=== PATIENT | female | born 1960 | race Caucasian/White ===

== ENCOUNTER → 2021-06-22 | Outpatient (CLI) | payer BC ==
[2021-06-27 14:09] LABS: HPV 16 Negative (Negative); HPV 18 Negative (Negative); HPV OTHER HR TYPES Negative (Negative)
== END | disposition home or self-care (01) ==
LOC: LAB 12:59 → LAB SHORT 12:59
PROVIDERS: Family Medicine
DX: Z01.419 Encounter for gynecological examination (general) (routine) without abnormal findings (principal)
CPT/HCPCS: 87624; G0145

== ENCOUNTER 2021-10-10 12:42 | Day surgery (SDC) | payer BC ==
[~2021-10-10 12:42] MED LIST: IBUP200 PO
--- NOTE | 2021-10-10 14:09 | NUR ---
Ambulatory in Day SurgeryPatient states colon prep results clear. History, Chart, Medications and Allergies reviewed before start of procedure.Lungs clear T/O to Auscultation. Patient confirms NPO status and agrees with scheduled surgery.
--- NOTE | 2021-10-10 14:41 | NUR ---
10/10/21 1441 Jackelin Perkins History, Chart, Medications and Allergies reviewed before start of procedure. Patient confirms NPO status and agrees with scheduled surgery. 3-LEAD EKG REVIEWED WITH PHYSICIAN PRIOR TO START OF PROCEDURE. MONITOR INTACT WITH CONTINUOUS PULSE OXIMETRY AND INTERMITTENT BP. PATIENT DETERMINED TO BE ASA APPROPRIATE FOR PROPOFOL SEDATION PRIOR TO START OF PROCEDURE BY .
--- NOTE | 2021-10-10 15:50 | NUR ---
Ambulatory in Day Surgery. Discharge instructions reviewed with patient. Patient verbalizes understanding. Copy given to patient to take home. History, Chart, Medications and Allergies reviewed before start of procedure. Lungs clear T/O to Auscultation. Patient States Post-Procedure ride home has been arranged. Discharged via wheelchair to private car for ride home.
== END 2021-10-10 15:55 | disposition home or self-care (01) ==
LOC: ORSCMMR 12:42 → ORD 14:15 → ORSCMMR 15:55
PROVIDERS: Surgery
PROC: 0DBH8ZX Excision of Cecum, Via Natural or Artificial Opening Endoscopic, Diagnostic (ICD-10-PCS; principal; 2021-10-10 14:15)
DX: Z12.11 Encounter for screening for malignant neoplasm of colon (principal); D12.0 Benign neoplasm of cecum; Z86.010 Personal history of colon polyps; E78.5 Hyperlipidemia, unspecified; Z87.891 Personal history of nicotine dependence
CPT/HCPCS: 88305; J2704; J7120

== ENCOUNTER 2023-11-03 09:17 | Emergency (ER) | payer OTHER ==
[~2023-11-03] VITALS: Ht 177.8 cm; Wt 86.2 kg
[2023-11-03 09:40] VITALS: BP 113/60
[2023-11-03] MEDS ORDERED: Norco 5-325 Ta1 EACH PO ×2 (11:00→12:28)
== END 2023-11-03 11:10 | disposition home or self-care (01) ==
LOC: ER 09:17
DX: S82.002A Unspecified fracture of left patella, initial encounter for closed fracture (principal); W01.0XXA Fall on same level from slipping, tripping and stumbling without subsequent striking against object, initial encounter
CPT/HCPCS: 29505; 73562-LT; 96372; 99283-25; A9270; J1170

== ENCOUNTER 2024-07-01 08:22 | Day surgery (SDC) | payer OTHER ==
[~2024-07-01 08:22] MED LIST changes: +Norco 5-325 Ta1 EACH PO
[2024-07-01] MEDS ORDERED: ENALAPRIL MALEA10 M2 (10:27)
[2024-07-01] MEDS ORDERED: BUPROPION XL150 M1 (10:27)
[2024-07-01] MEDS ORDERED: LAMO25 (10:28)
[2024-07-01] MEDS ORDERED: Naltrexone HCl50 MG (10:28)
== END 2024-07-02 00:01 | disposition home or self-care (01) ==
LOC: MOI MAM 08:22
PROC: 0HBU0ZZ Excision of Left Breast, Open Approach (ICD-10-PCS; principal; 2024-07-01)
DX: D05.12 Intraductal carcinoma in situ of left breast (principal)
CPT/HCPCS: 19281; 88307; A4648; J0690; J1100; J2405; J2704; J2765; J3010; J7120

== ENCOUNTER 2024-07-01 09:55 | Day surgery (SDC) | payer OTHER ==
[~2024-07-01] VITALS: Ht 175.3 cm; Wt 84.1 kg
[~2024-07-01 09:55] MED LIST changes: +Bupivacaine 0.5% HCl 5 MG/ML 30MLVIAL ONE; +Lactated Ringer's 1,000 ML IV ONE
[2024-07-01] MEDS ORDERED: NS 50 ML IV ONE (10:19)
[2024-07-01] MEDS ORDERED: CeFAZolin Sodium 2,000 MG VIAL ONE (10:19)
[2024-07-01] MEDS ORDERED: ENALAPRIL MALEA10 M2 (10:27)
[2024-07-01] MEDS ORDERED: BUPROPION XL150 M1 (10:27)
[2024-07-01] MEDS ORDERED: Naltrexone HCl50 MG (10:28)
[2024-07-01] MEDS ORDERED: LAMO25 (10:28)
[2024-07-01] MEDS ORDERED: Lactated Ringer's 1,000 ML IV ONE ×2 (10:50→12:37)
[2024-07-01] MEDS ORDERED: FentaNYL Citrate 50 MCG/ML 2 ML Injection ONE ×2 (11:54→12:16)
[2024-07-01] MEDS ORDERED: propofoL 20 ML IV ONE ×2 (11:54→11:58)
[2024-07-01] MEDS ORDERED: Ondansetron HCl 2 MG / ML 2ML Vial ONE ×2 (12:14→13:20)
[2024-07-01] MEDS ORDERED: Metoclopramide HCl 5MG / ML 2ML Vial ONE (12:14)
[2024-07-01] MEDS ORDERED: Dexamethasone Sod Phos 10 MG/ML 1ML VIAL ONE (12:14)
[2024-07-01] MEDS ORDERED: ePHEDrine Sulfate 50 MG/ML 1ML Injection ONE (12:27)
[2024-07-01 13:49] VITALS: BP 132/81
--- NOTE | 2024-07-01 13:53 | NUR ---
07/01/24 2083 Maria A Herbert RECIEVED REPORT FROM Anton WEST RN. PT STATED TO BRETT SHE FELT NAUSEOUS, WHEN BRETT CAME INTO SDU, PT REPORTED NAUSEA RESOLVED, NO MEDICATION NEEDED. PT DENIED NAUSEA AND PAIN. O2 SATURATIONS NOTED BETWEEN 90-94% ON ROOM AIR. LUNG SOUNDS CLEAR, SLIGHTLY DIMINISHED UPPER AND MIDDLE LOBE OF RIGHT LUNGS. PT DENIES SHORTNES OF BREATH, PT STATED SHE "STILL FEELS A LITTLE TIRED" O2 SATURATIONS INCREASED TO 97-98% WITH ENCOURAGEMENT OF DEEP BREATHING. GAVE REPORT BACK TO BRETT Walton RN.
== END 2024-07-01 14:40 | disposition home or self-care (01) ==
LOC: ORSCSDS 09:55
PROVIDERS: Surgery
PROC: 0HBU0ZZ Excision of Left Breast, Open Approach (ICD-10-PCS; principal; 2024-07-01 11:00)
DX: C50.912 Malignant neoplasm of unspecified site of left female breast (principal); Z17.0 Estrogen receptor positive status [ER+]; I10 Essential (primary) hypertension; Z79.899 Other long term (current) drug therapy
CPT/HCPCS: 19281; 88307; A4648; J0690; J1100; J2405; J2704; J2765; J3010; J7120

== ENCOUNTER 2024-07-13 06:50 | Day surgery (SDC) | payer OTHER ==
[~2024-07-13] VITALS: Ht 165.1 cm; Wt 84.4 kg
[2024-07-13] VITALS (9 sets, daily range): BP systolic 127–142; BP diastolic 70–84
[~2024-07-13 06:50] MED LIST changes: +BUPROPION XL150 M1; -Bupivacaine 0.5% HCl 5 MG/ML 30MLVIAL ONE; +ENALAPRIL MALEA10 M2; +LAMO25; -Lactated Ringer's 1,000 ML IV ONE; +Lactated Ringer's 1,000 ML IV SCH; +Naltrexone HCl50 MG
[2024-07-13] MEDS ORDERED: Bupivacaine 0.5% HCl 5 MG/ML 30MLVIAL ONE (07:34)
[2024-07-13] MEDS ORDERED: CeFAZolin Sodium 2,000 MG in NS 100 ML IV SCH (08:00)
[2024-07-13] MEDS ORDERED: FentaNYL Citrate 50 MCG/ML 2 ML Injection ONE ×2 (08:14→08:34)
[2024-07-13] MEDS ORDERED: propofoL 20 ML IV ONE (08:14)
[2024-07-13] MEDS ORDERED: Midazolam HCl 1MG / ML 2ML Vial ONE (08:15)
[2024-07-13] MEDS ORDERED: ePHEDrine Sulfate 50 MG/ML 1ML Injection ONE (08:42)
[2024-07-13] MEDS ORDERED: Lactated Ringer's 1,000 ML IV ONE (08:45)
[2024-07-13] MEDS ORDERED: Metoclopramide HCl 5MG / ML 2ML Vial ONE (08:46)
[2024-07-13] MEDS ORDERED: Dexamethasone Sod Phos 10 MG/ML 1ML VIAL ONE (08:46)
[2024-07-13] MEDS ORDERED: Ondansetron HCl 2 MG / ML 2ML Vial ONE (08:46)
[2024-07-13] MEDS ORDERED: Phenylephrine HCl 100 MCG/ML-NS 10MLSYR (1MG/10ML) ONE (08:55)
[2024-07-13] MEDS ORDERED: HYDROcodone 5-APAP 325 TAB PO PRN (09:35)
--- NOTE | 2024-07-13 10:29 | NUR ---
DISCHARGE NOTE PT A&OX4, BREATHING RA, TOLERATING PO FLUIDS. PT WITHDRAWN, FLAT AFFECT, SHORT C RESPONSES. REFUSED SNACK OR PAIN MEDICATION. BREAST BINDER IN PLACE. Patient up to Ambulate independently. Gait steady.VOIDED PRIOR TO DISCHARGE. Discharge instructions reviewed with patient. Patient verbalizes understanding. Copy given to patient to take home. Dressing to procedure site clean, dry, intact with no visible drainage, swelling, erythema or bruising noted. Discharged via wheelchair to private car for ride home.
== END 2024-07-13 10:25 | disposition home or self-care (01) ==
LOC: ORSCMMR 06:50 → ORD 08:00 → ORSCMMR 08:00
PROVIDERS: Surgery
PROC: 0HBU0ZZ Excision of Left Breast, Open Approach (ICD-10-PCS; principal; 2024-07-13 08:00)
DX: D05.12 Intraductal carcinoma in situ of left breast (principal); Z17.0 Estrogen receptor positive status [ER+]; I10 Essential (primary) hypertension; E78.5 Hyperlipidemia, unspecified; Z79.899 Other long term (current) drug therapy
CPT/HCPCS: 88305; J0690; J1100; J2250; J2371; J2405; J2704; J2765; J3010; J7120

== ENCOUNTER 2025-10-26 07:47 | Day surgery (SDC) | payer OTHER ==
[~2025-10-26] VITALS: Ht 170.2 cm; Wt 89.5 kg
[2025-10-26] VITALS (14 sets, daily range): BP systolic 121–153; BP diastolic 60–82
[~2025-10-26 07:47] MED LIST changes: +ALENDRONATE SOD70 MG PO; +AZELASTINE137 MCG/01; +BEET ROOT500 MG PO; +CeFAZolin Sodium 2,000 MG in NS 100 ML IV SCH; +Chlorhexidine Mouth Care 15 ML UDC MT SCH; +ENAL10 PO; -ENALAPRIL MALEA10 M2; +GLUCHON PO; -Lactated Ringer's 1,000 ML IV SCH; +MULVITA PO; +Ropivacaine 0.5% HCl/Pf 123.125 MG,EPINEPHrine HCL 0.25 MG,Ketorolac Tromethamine 15 MG... INFIL SCH; +TUMS500 MG PO; +TURMERIC CURCU1 EACH PO; +Tranexamic Acid 100 ML IV SCH; +ZYRTEC10 M2 PO
[2025-10-26] MEDS ORDERED: CALCIUM CARBON500 M1 PO (08:29)
--- NOTE | 2025-10-26 08:51 | NUR ---
Ambulatory in Day Surgery History, Chart, Medications and Allergies reviewed before start of procedure. Pre-Op teaching done. Pt verbalizes understanding. Patient States Post-Procedure ride home has been arranged.
[2025-10-26] MEDS ORDERED: Midazolam HCl 1MG / ML 2ML Vial ONE (09:30)
[2025-10-26] MEDS ORDERED: Ondansetron HCl 2 MG / ML 2ML Vial IV PRN (09:35)
[2025-10-26] MEDS ORDERED: Metoclopramide HCl 5MG / ML 2ML Vial IV PRN ×2 (09:35→10:25)
[2025-10-26] MEDS ORDERED: FLU VACC TS2025(65UP)/MF59C/PF 45 MCG/0.5 ML SYRINGE IM SCH (09:40)
[2025-10-26] MEDS ORDERED: HYDROmorphone HCl/Pf 1MG SYR IV PRN ×3 (09:40→10:25)
[2025-10-26] MEDS ORDERED: Magnesium Hydroxide Conc 10 ML UDC PO PRN (09:40)
[2025-10-26] MEDS ORDERED: FentaNYL Citrate 50 MCG/ML 2 ML Injection ONE (10:13)
[2025-10-26] MEDS ORDERED: FentaNYL Citrate 50 MCG/ML 2 ML Injection IV PRN ×2 (10:25)
[2025-10-26] MEDS ORDERED: Ondansetron HCl 2 MG / ML 2ML Vial ONE (10:27)
[2025-10-26] MEDS ORDERED: Dexamethasone Sod Phos 10 MG/ML 1ML VIAL ONE (10:27)
[2025-10-26] MEDS ORDERED: ePHEDrine Sulfate 50 MG/ML 1ML Injection ONE (10:31)
[2025-10-26] MEDS ORDERED: Ketorolac Tromethamine 15mg Vial IV SCH (12:00)
[2025-10-26] MEDS ORDERED: Metoclopramide HCl 5MG / ML 2ML Vial ONE (13:05)
[2025-10-26] MEDS ORDERED: ASPI81CH PO (17:24)
[2025-10-26] MEDS ORDERED: CeFAZolin Sodium 2,000 MG in NS 100 ML IV SCH (18:00)
--- NOTE | 2025-10-26 19:29 | NUR ---
ASSUMED CARE OF PT @1400 AXO4. VSS. TELFA/TEGADERM CDI. PAIN MEDS PER EMAR. L FOOT WITH EXTERNAL ROTATION - PER PACU REPORT AND PER PT - THIS IS CHRONIC AND "BETTER" POST OPERATIVELY. WIGGLING TOES WELL. CAP REFILL <3SEC. WORKED WITH PHYSICAL THERAPY WELL. VOIDED. TOLERATED PO INTAKE WELL. DEEMED OK TO DC. DC INSTRUCTIONS PROVIDED WITH FAMILY IN ROOM. IV PULLED. PT DC'D @[id number].
[2025-10-27] MEDS ORDERED: Calcium Carbonate 1,250 MG TABLET PO SCH (09:00)
[2025-10-27] MEDS ORDERED: Multivitamins 1 Tab PO SCH (09:00)
== END 2025-10-26 17:55 | disposition home or self-care (01) ==
LOC: ORSCMMR 07:47 → ORD 09:15 → SURS 14:00 → ORSCMMR 17:55
PROVIDERS: Orthopaedic Surgery
PROC: 0SRD0J9 Replacement of Left Knee Joint with Synthetic Substitute, Cemented, Open Approach (ICD-10-PCS; principal; 2025-10-26 09:15)
DX: M17.12 Unilateral primary osteoarthritis, left knee (principal); I10 Essential (primary) hypertension; Z85.3 Personal history of malignant neoplasm of breast; Z79.899 Other long term (current) drug therapy
CPT/HCPCS: 73560-LT; 97110; 97116; 97161; 97530; A9270; C1713; C1776; J0166; J0690; J0735; J1100; J1885; J2250; J2405; J2704; J2765; J2795; J3010; J7120